=== PATIENT | female | born 1960 | race Caucasian/White ===

== ENCOUNTER 2018-03-26 21:47 | Emergency (ER) | payer OTHER ==
[~2018-03-26] VITALS: Ht 165.1 cm; Wt 129.3 kg
[~2018-03-26 21:47] MED LIST: ADVIL100 M3; CALCIUM CITRAT250 MG; CELEBREX; CYCLOBENZAPRINE; CYMBALTA; GLIPIZIDE XL2.5 MG; HYDROXYCHLOROQ200 M1; INTEGRA; LEVOTHROID; METFORMIN; MIRTAZAPINE; NEXIUM; NORCO 5-325 TA1 EACH PO; ULTRAM 50MG TAB50 MG PO; VITAMIN D-32000 UNIT; ZESTRIL; ZOCOR
[2018-03-26] MEDS ORDERED: ATORVASTATIN (22:26)
[2018-03-26] MEDS ORDERED: PREDNISOLONE (22:27)
[2018-03-26] MEDS ORDERED: GLIPIZIDE ER10 MG (22:27)
[2018-03-26] MEDS ORDERED: OMEPRAZOLE40 MG (22:27)
[2018-03-26] MEDS ORDERED: EVISTA (22:27)
[2018-03-26] MEDS ORDERED: CHILDREN'S ASPI81 M1 (22:28)
[2018-03-26] MEDS ORDERED: LACTOFERRIN (22:28)
[2018-03-26] MEDS ORDERED: OTC ALLERGY (22:28)
[2018-03-26] MEDS ORDERED: MEDROLDOSEPACK PO (23:41)
[2018-03-26 23:53] VITALS: BP 132/74
== END 2018-03-26 23:54 | disposition home or self-care (01) ==
LOC: M.ERS 21:47
DX: M54.41 Lumbago with sciatica, right side (principal); I10 Essential (primary) hypertension; M32.9 Systemic lupus erythematosus, unspecified; E89.0 Postprocedural hypothyroidism; Z88.1 Allergy status to other antibiotic agents; Z88.0 Allergy status to penicillin; Z88.5 Allergy status to narcotic agent; Z91.040 Latex allergy status; Z88.8 Allergy status to other drugs, medicaments and biological substances

== ENCOUNTER 2019-05-03 20:46 | Observation (INO) | payer OTHER ==
[~2019-05-03] VITALS: Ht 165.1 cm; Wt 125.2 kg
[~2019-05-03 20:46] MED LIST changes: +ATORVASTATIN PO; -CELEBREX; +CELEBREX 200 M200 M1 PO; +CHILDREN'S ASPI81 M1 PO; -CYCLOBENZAPRINE; +EVISTA PO; +FLEXERIL PO; +GLIPIZIDE ER10 MG; -HYDROXYCHLOROQ200 M1; +HYDROXYCHLOROQ200 M1 PO; +LACTOFERRIN PO; -LEVOTHROID; +LEVOXYL200 MCG PO; +MEDROLDOSEPACK PO; +OMEPRAZOLE40 MG PO; +OTC ALLERGY; +PREDNISOLONE
[2019-05-03 20:53] VITALS: BP 157/102
[2019-05-03] MEDS ORDERED: TRULICITY1.5 MG/0.5 SUBQ (20:58)
[2019-05-03] MEDS ORDERED: RANITIDINE 150150 M1 PO (20:58)
[2019-05-03 21:33] LABS: HEMATOCRIT 39.8 % (37.0-47.0); HEMOGLOBIN 13.4 gm/dL (12.0-15.0); MCH 25.7 pg (26.0-34.0); MCHC 33.7 g/dL (28.0-37.0); MCV 76.3 fL (80.0-100.0); MPV 9.1 fl. (7.2-11.1); NUCLEATED RBCS 0 /100WBC; PLATELET COUNT* 387 thou/uL (150-400); RBC 5.22 mil/uL (4.20-5.00); WBC 14.7 thou/uL (4.0-11.0)
[2019-05-03 21:40] LABS: CALCIUM 9.1 mg/dL (8.5-10.1); CREATININE 1.1 mg/dL (0.6-1.3); POTASSIUM 4.1 mmol/L (3.5-5.1)
[2019-05-03 21:44] LABS: ALBUMIN 3.4 g/dL (3.4-5.0); TOTAL BILIRUBIN 0.6 mg/dL (<0.1-1.0); TOTAL PROTEIN 7.7 g/dL (6.4-8.2)
[2019-05-03 21:45] LABS: INFLUENZA A ANTIGEN Negative (Negative); INFLUENZA B ANTIGEN Negative (Negative)
[2019-05-03 22:02] LABS: ABSOLUTE EOSINOPHILS 0.1 thou/uL (0.0-0.7); ABSOLUTE LYMPHOCYTES 1.9 thou/uL (0.8-5.3); ABSOLUTE NEUTROPHILS 12.6 thou/uL (1.6-8.1)
[2019-05-03 22:04] LABS: LARGE PLATELETS RARE; PLATELET ESTIMATE ADEQUATE
[2019-05-04] VITALS (7 sets, daily range): BP systolic 107–129; BP diastolic 55–76
--- NOTE | 2019-05-04 00:31 | NUR ---
PATIENT RESTING IN HOSPITAL BED
--- NOTE | 2019-05-04 08:57 | NUR ---
UPON ASSESSMENT OF PT, FLUIDS WERE HUNG WO BUT WERE NOT INFUSING R/T BEING CLAMPED. MAINTENANCE FLUIDS WILL BE SCANNED AND HUNG AT THE END OF INITAL FLUID BOLUS COMPLETION.
[2019-05-04 11:49] LABS: ABSOLUTE BASOPHILS 0.1 thou/uL (0.0-0.2); ABSOLUTE EOSINOPHILS 0.2 thou/uL (0.0-0.7); ABSOLUTE LYMPHOCYTES 1.7 thou/uL (0.8-5.3); ABSOLUTE MONOCYTES 0.6 thou/uL (0.0-1.2); ABSOLUTE NEUTROPHILS 6.1 thou/uL (1.6-8.1); BASOPHILS 1.1 %; EOSINOPHILS 2.1 %; HEMATOCRIT 33.3 % (37.0-47.0); LYMPHOCYTES 19.8 %; MCH 25.7 pg (26.0-34.0); MCHC 33.1 g/dL (28.0-37.0); MCV 77.5 fL (80.0-100.0); MONOCYTES 7.2 %; NUCLEATED RBCS 0 /100WBC; PLATELET COUNT* 257 thou/uL (150-400); POLYS 69.8 %; RBC 4.29 mil/uL (4.20-5.00); RDW-CV 15.2 % (10.5-14.5); WBC 8.8 thou/uL (4.0-11.0)
--- NOTE | 2019-05-04 14:17 | EKG ---
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: SATYA : 1960 Requested By: Vineet Ramírez Order Number: [id number] MD: Tahir Randolph Measurements Intervals [place] Rate: 90 P: 71 MO: 134 QRS: 39 QRSD: 139 T: 7 QT: 423 QTc: 518 Interpretive Statements Sinus rhythm Right bundle branch block Baseline wander in lead(s) V2 Compared to ECG 08/17/2013 19:00:11 no change Electronically Signed On 05-04-2019 14:17:14 RABBLER by Tahir Randolph [email or web address] <ELECTRONICALLY SIGNED> By: Tahir Randolph MD, FACC 05/04/19 1417 11 11 Tahir Randolph MD, [facility] /EPI
[2019-05-04] MEDS ORDERED: VITAMIN D50000 UNIT PO (16:52)
[2019-05-04] MEDS ORDERED: RAYOS5 MG PO (16:55)
--- NOTE | 2019-05-04 18:02 | NUR ---
PATIENT ADMITTED TO ROOM 304 FROM ER. NO COMPLAINTS OF N/V/D/ OR PAIN. ALERT AND ORIENTED X 4. IVF INFUSING. CLEAR LIQUID DIET. HOME MED LIST UPDATED, DR. SPENCE AWARE. ACCUCHECK AC/HS. UP WITH SBA. ORIENTED TO CALL LIGHT. CALL LIGHT WITHIN REACH, WILL CONTINUE TO MONITOR.
[2019-05-05 06:22] LABS: ABSOLUTE BASOPHILS 0.1 thou/uL (0.0-0.2); ABSOLUTE EOSINOPHILS 0.3 thou/uL (0.0-0.7); ABSOLUTE LYMPHOCYTES 2.1 thou/uL (0.8-5.3); ABSOLUTE MONOCYTES 0.4 thou/uL (0.0-1.2); BASOPHILS 0.9 %; EOSINOPHILS 5.7 %; HEMATOCRIT 32.2 % (37.0-47.0); HEMOGLOBIN 10.8 gm/dL (12.0-15.0); LYMPHOCYTES 35.1 %; MCH 25.8 pg (26.0-34.0); MCHC 33.4 g/dL (28.0-37.0); MCV 77.3 fL (80.0-100.0); MONOCYTES 7.1 %; MPV 8.4 fl. (7.2-11.1); NUCLEATED RBCS 0 /100WBC; PLATELET COUNT* 242 thou/uL (150-400); POLYS 51.2 %; RBC 4.16 mil/uL (4.20-5.00); RDW-CV 15.2 % (10.5-14.5); WBC 5.9 thou/uL (4.0-11.0)
[2019-05-05 06:31] LABS: CALCIUM 7.9 mg/dL (8.5-10.1); POTASSIUM 3.3 mmol/L (3.5-5.1)
[2019-05-05 07:50] VITALS: BP 91/45
[2019-05-05 15:39] VITALS: BP 91/45
--- NOTE | 2019-05-05 16:20 | NUR ---
PATIENT IV LEAKING THIS AM, IV ANF IVF DC'D PER DR. SPENCE. IF PATIENT ABLE TO TOLERATE FULL LIQUIDS AT LUNCH THEN OK TO DC HOME. PATIENT TOLERATED MEAL. PATIENT GIVEN ONE TIME PO POTASSIUM DOSE PRIOR TO DC. PATIENT VERBALIZES UNDERSTANDING OF PAPERWORK, NO SCRIPTS. PATIENT TAKEN OUT VIA WHEELCHAIR.
== END 2019-05-05 16:28 | disposition home or self-care (01) ==
LOC: M.ERS 20:46 → M.3W 22:09 → M.TBA-ER 22:09 → M.3W 22:09 → M.TBA-ER 05-04 14:32 → M.3W 05-04 16:06
PROVIDERS: Family Medicine; ADMIT Internal Medicine
DX: A08.4 Viral intestinal infection, unspecified (principal); K85.90 Acute pancreatitis without necrosis or infection, unspecified; E86.0 Dehydration; E03.9 Hypothyroidism, unspecified; E11.9 Type 2 diabetes mellitus without complications; K21.9 Gastro-esophageal reflux disease without esophagitis; F41.9 Anxiety disorder, unspecified; M79.7 Fibromyalgia; K76.0 Fatty (change of) liver, not elsewhere classified

== ENCOUNTER → 2019-11-01 | Outpatient (CLI) | payer OTHER ==
[~2019-11-01] MED LIST changes: +RANITIDINE 150150 M1 PO; +RAYOS5 MG PO; +TRULICITY1.5 MG/0.5 SUBQ; +VITAMIN D50000 UNIT PO
== END ==
LOC: M.ULTRA 09:00
PROVIDERS: ATTEND Registered Nurse Diabetes Educator
DX: R16.1 Splenomegaly, not elsewhere classified (principal); K85.90 Acute pancreatitis without necrosis or infection, unspecified

== ENCOUNTER → 2020-07-13 | Outpatient (CLI) | payer OTHER | LOC: M.RAD 13:18 | PROVIDERS: ATTEND Registered Nurse Diabetes Educator | DX: R05 Cough (principal); R06.02 Shortness of breath ==

== ENCOUNTER → 2020-08-16 | Outpatient (CLI) | payer OTHER | LOC: M.CT 09:08 | PROVIDERS: ATTEND Registered Nurse Diabetes Educator | DX: R91.1 Solitary pulmonary nodule (principal); Z86.16 Personal history of COVID-19 ==

== ENCOUNTER → 2020-09-25 | Outpatient (CLI) | payer OTHER | LOC: M.NUC 07:02 | PROVIDERS: ATTEND Internal Medicine Gastroenterology | DX: K21.9 Gastro-esophageal reflux disease without esophagitis (principal) ==

== ENCOUNTER → 2020-11-27 | Outpatient (CLI) | payer OTHER | LOC: M.CT 08:57 | PROVIDERS: ATTEND Registered Nurse Diabetes Educator | DX: U07.1 COVID-19 (principal); K44.9 Diaphragmatic hernia without obstruction or gangrene; R91.1 Solitary pulmonary nodule; J12.82 Pneumonia due to coronavirus disease 2019; M25.551 Pain in right hip ==